=== PATIENT | male | born 1980 | race Caucasian/White ===

== ENCOUNTER 2019-05-31 01:46 | Emergency (ER) | payer MEDICAID ==
[~2019-05-31] VITALS: Ht 185.4 cm; Wt 109.8 kg
[2019-05-31] MEDS ORDERED: KETOROLAC 30 MG/1 ML ONE (02:08)
[2019-05-31] MEDS ORDERED: ONDANSETRON 2MG/ML, 2ML ONE (02:08)
[2019-05-31] MEDS ORDERED: MORPHINE SULFATE 4 MG/ML, 1ML ONE (02:09)
--- NOTE | 2019-05-31 02:11 | NUR ---
PT C/O ABDOMINAL PAIN STARTING ABOUT 1 WEEK AGO WITH INCREASING PAIN. PT REPORTS NAUSEA W/O VOMITING. DENIES DIARRHEA, CP, SOB. PT REPORTS INTERMITTENT DIARRHEA/ CONSTIPATION WITH NEITHER AT THIS TIME. PT PLACED ON MONITORING, IN HOSPITAL GOWN. FAMILY AT BS. ALL SAFETY MEASURES IN PLACE, CALL LIGHT WITHIN REACH. LABS BEING DRAWN NOW.
[2019-05-31 02:23] LABS: BASOPHILS # (AUTO) 0.06 x10^3/uL (0-0.1); BASOPHILS % (AUTO) 1 % (0-1); EOSINOPHILS # (AUTO) 0.15 x10^3/uL (0-0.4); EOSINOPHILS % (AUTO) 2 % (1-7); LYMPHOCYTES # (AUTO) 3.19 x10^3/uL (1-3.4); LYMPHOCYTES % (AUTO) 36 % (22-44); MD NO; MEAN CORPUSCULAR HEMOGLOBIN 29.2 pg (27.5-34.5); MEAN CORPUSCULAR VOLUME 88.5 fL (81-97); MEAN PLATELET VOLUME 6.4 fL (7.4-10.4); MONOCYTES # (AUTO) 0.63 x10^3/uL (0.2-0.8); MONOCYTES % (AUTO) 7 % (2-9); NEUTROPHILS # (AUTO) 4.84 x10^3/uL (1.8-6.8); NEUTROPHILS % (AUTO) 55 % (42-75); PLATELET COUNT 355 x10^3/uL (130-400)
--- NOTE | 2019-05-31 02:26 | NUR ---
PT. MEDICATED PER SEP. US AT BS FOR IMAGING. FAMILY AT BS FOR SUPPORT. CALL LIGHT IN REACH. ALL SAFETY MEASURES OSBERVED.
[2019-05-31] MEDS ORDERED: ONDANSETRON 2MG/ML, 2ML IVPush ONE (02:30)
[2019-05-31] MEDS ORDERED: MORPHINE SULFATE 4 MG/ML, 1ML IVPush PRN (02:30)
[2019-05-31] MEDS ORDERED: KETOROLAC 30 MG/1 ML IVPush ONE (02:30)
[2019-05-31] MEDS ORDERED: SODIUM CHLORIDE FLUSH 10ML SYR IVF ONE (02:30)
[2019-05-31 02:36] LABS: ALANINE AMINOTRANSFERASE 49 U/L (12-78); ALBUMIN 4.4 g/dL (3.4-5.0); ANION GAP 7 mmol/L (5-15); CHLORIDE 108 mmol/L (98-107); CREATININE 0.87 mg/dL (0.7-1.3)
[2019-05-31 02:39] LABS: ALKALINE PHOSPHATASE 80 U/L (45-117); BILIRUBIN,TOTAL 0.5 mg/dL (0.2-1.0); TOTAL PROTEIN 7.6 g/dL (6.4-8.2)
--- NOTE | 2019-05-31 02:56 | NUR ---
PT. REPORTS PAIN DOWN TO 3/10 AFTER MEDS. CHART UP FOR RECHECK BY ERP AT THIS TIME. PT. DENIES NEEDS. SAFETY MEASURES MAINTAINED.
[2019-05-31 03:27] VITALS: BP 123/83
== END 2019-05-31 03:28 | disposition home or self-care (01) ==
LOC: ED 02:30
DX: G89.29 Other chronic pain (principal); R10.11 Right upper quadrant pain; Z90.49 Acquired absence of other specified parts of digestive tract
CPT/HCPCS: 36415; 76700; 80053; 83690; 85025; 96374; 96375; 99284; J1885; J2270; J2405; 99283

== ENCOUNTER 2019-06-01 18:09 | Emergency (ER) | payer MEDICAID ==
[~2019-06-01] VITALS: Ht 185.4 cm; Wt 110.0 kg
--- NOTE | 2019-06-01 18:57 | NUR ---
ROCIOT IN ROOM. AWAITING DOCTOR DISPO.CONNECTED TO COMPLIANCE EXAMINER. NO REQUESTES
[2019-06-01] MEDS ORDERED: OMEPRAZOLE 20 MG CAPSULE.DR PO ONE (19:00)
[2019-06-01] MEDS ORDERED: MAALOX/HYOSCYAMINE/LIDOCAINE 45 ML BTL PO ONE (19:00)
[2019-06-01] MEDS ORDERED: HYDROcodone/APAP 5/325 TABLET PO ONE (19:00)
[2019-06-01] MEDS ORDERED: OMEPRAZOLE 20 MG CAPSULE.DR ONE (19:02)
[2019-06-01] MEDS ORDERED: MAALOX/HYOSCYAMINE/LIDOCAINE 45 ML BTL ONE (19:03)
[2019-06-01] MEDS ORDERED: HYDROcodone/APAP 5/325 TABLET ONE (19:03)
[2019-06-01 19:34] VITALS: BP 105/73
== END 2019-06-01 19:44 | disposition home or self-care (01) ==
LOC: ED 19:15
DX: R10.11 Right upper quadrant pain (principal); R10.13 Epigastric pain; Z90.49 Acquired absence of other specified parts of digestive tract; F17.200 Nicotine dependence, unspecified, uncomplicated
CPT/HCPCS: 93005; 99284